=== PATIENT | female | born 1995 ===

== ENCOUNTER → 2017-08-27 | Outpatient (CLI) | payer BC | LOC: LAB 14:10 | PROVIDERS: ATTEND Nurse Practitioner Family | DX: E28.2 Polycystic ovarian syndrome (principal); E03.9 Hypothyroidism, unspecified; R94.5 Abnormal results of liver function studies | CPT/HCPCS: 36415; 82040; 82247; 82310; 82374; 82435; 82565; 82947; 83525; 84075; 84132; 84155; 84295; 84439; 84443; 84450; 84460; 84520 ==

== ENCOUNTER 2018-09-18 22:23 | Emergency (ER) | payer BC ==
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
[2018-09-18 22:29] VITALS: BP 147/82
[2018-09-18] MEDS ORDERED: METF-450 PO (22:36)
[2018-09-18] MEDS ORDERED: LEVO50TA86 PO (22:36)
[2018-09-18] MEDS ORDERED: SPIR25TA80 PO (22:36)
[2018-09-18] MEDS ORDERED: ONDANSETRON 4 MG ODT TABDP SL ONE (22:50)
--- NOTE | 2018-09-18 23:46 | RADIOLOGY IMAGING REPORT ---
FACILITY: [facility] [place] PATIENT NAME: Ruma Galarza : 1995 MR: [id number] V: [id number] EXAM DATE: ORDERING PHYSICIAN: JEROME BUCKLEY TECHNOLOGIST: Location: [facility] - [place] Patient: Ruma Galarza : 1995 Visit/Account:[id number] Date of Sevice: 09/18/2018 CT BRAIN NO CONTRAST HISTORY: Concussion and neck pain. Symptoms for one week. COMPARISON: None. CT cervical spine was performed at the same time as the current examination. TECHNIQUE: Axial images were obtained from the skull base to the vertex without contrast. Sagittal an d coronal reformats were performed. One of the following dose optimization techniques was utilized in the performance of this exam: Autom ated exposure control; adjustment of the mA and/or kV according to the patient's size; or use of an i terative reconstruction technique. Specific details can be referenced in the facility's radiology CT exam operational policy. CONTRAST: None. FINDINGS: Brain: No intracranial hemorrhage, mass, or edema. Sulci, ventricles, and cisterns: Sulci are normal. The ventricles are normal in size and configuratio n. The basilar cisterns are patent. Osseous structures: Intact. Paranasal sinuses and mastoids: There is a large mucus retention pseudocyst in the left maxillary sin us. There is mild mucosal thickening of the bilateral maxillary, sphenoid, and frontal sinuses. There is moderate mucosal thickening of the bilateral ethmoid sinuses. No nasal septal deviation. Mastoids are clear. Orbits and soft tissues: Normal. IMPRESSION: 1. No acute intracranial abnormality. 2. Diffuse sinus disease. Report Dictated By: Jasmina Posada at 09/18/2018 11:39 PM Report E-Signed By: Jasmina Posada at 09/18/2018 11:43 PM WSN:[id number]
--- NOTE | 2018-09-18 23:49 | RADIOLOGY IMAGING REPORT ---
FACILITY: [facility] [place] PATIENT NAME: Ruma Galarza : 1995 MR: [id number] V: [id number] EXAM DATE: ORDERING PHYSICIAN: JEROME BUCKLEY TECHNOLOGIST: Location: [facility] - [place] Patient: Ruma Galarza : 1995 Visit/Account:[id number] Date of Sevice: 09/18/2018 CT VERTEBRA CERVICAL (NON CON) HISTORY: Concussion pain. Symptoms for one week. COMPARISON: None. CT brain was performed at the same time as the current examination. TECHNIQUE: Axial images were obtained from the skull base through the upper thoracic spine. Coronal a nd sagittal reformatted images were obtained from the axial source data. One of the following dose optimization techniques was utilized in the performance of this exam: Autom ated exposure control; adjustment of the mA and/or kV according to the patient's size; or use of an i terative reconstruction technique. Specific details can be referenced in the facility's radiology CT exam operational policy. CONTRAST: None. FINDINGS: Musculoskeletal/vertebra: No acute osseous abnormality. There is reversal of the normal cervical lord osis centered at C5-6. There is very mild loss of disc height anteriorly at C5-6 and C6-7. Vertebral body heights are maintained. The spinal canal is normal in caliber. Prevertebral soft tissues are wit hin normal limits. Visualized upper chest: Normal. Soft tissues: Normal. IMPRESSION: 1. No acute osseous abnormality of the cervical spine. 2. There is reversal of the normal cervical lordosis, which may be positional or due to muscle spasm. Report Dictated By: Jasmina Posada at 09/18/2018 11:43 PM Report E-Signed By: Jasmina Posada at 09/18/2018 11:46 PM WSN:[id number]
[2018-09-19] MEDS ORDERED: AMOX/CLAV 875 MG TAB PO ONE
[2018-09-19] MEDS ORDERED: ONDA4TAB9 PO (00:03)
[2018-09-19] MEDS ORDERED: AMOX-559 PO (00:03)
[2018-09-19] MEDS ORDERED: DOXY-179 PO (00:23)
[2018-09-19] MEDS ORDERED: DOXYCYCLINE HYCL 100 MG TAB PO ONE (00:25)
== END 2018-09-19 00:15 | disposition home or self-care (01) ==
LOC: ER 22:39
DX: J32.9 Chronic sinusitis, unspecified (principal); S06.0X0A Concussion without loss of consciousness, initial encounter; V48.5XXA Car driver injured in noncollision transport accident in traffic accident, initial encounter; Y92.488 Other paved roadways as the place of occurrence of the external cause
CPT/HCPCS: 70450; 72125; 99284; S0119